=== PATIENT | male | born 1985 | race Hispanic/Latino ===

== ENCOUNTER 2023-03-28 10:26 | Outpatient (CLI) | payer OTHER | END 2023-03-28 10:27 | disposition home or self-care (01) | LOC: BICRAD 10:26 | PROVIDERS: ATTEND Nurse Practitioner Family | DX: M79.645 Pain in left finger(s) (principal) ==

== ENCOUNTER 2023-11-29 12:53 | Inpatient (IN) | payer SELFPAY ==
[2023-11-29] MEDS ORDERED: CEFAZOLIN 2 GM VIAL ONE (13:02)
[2023-11-29] MEDS ORDERED: Morphine 4 MG/ML VIAL ONE ×2 (13:02→14:21)
[2023-11-29] MEDS ORDERED: Sodium Chloride 0.9% 100 ML ONE (13:03)
[2023-11-29] MEDS ORDERED: TETANUS, DIPHTHERIA TOX,ADULT (TDVAX) 0.5 ML VIAL IM ONE (13:27)
[2023-11-29] MEDS ORDERED: Lidocaine 1% w/Epinephrine 1:100K 20 ML VIAL ONE (13:28)
[2023-11-29 13:30] LABS: #Basophils 0.03 10x3/uL (0.0-0.2); %Basophils 0.4 % (0.0-1.0); %Eosinophils 1.9 % (0.0-10.0); %Monocytes 4.9 % (0.0-10.0); %Neutrophils 70.5 % (42.0-75.0); Hematocrit 40.2 % (42.0-52.0); Hemoglobin 13.9 g/dL (14.0-18.0); Mean Corpuscular HGB CONC 34.6 g/dL (32.0-36.0); Mean Corpuscular Hemoglobin 29.4 pg (27.0-31.0); Mean Platelet Volume 11.1 fL (7.4-10.4); Platelet Count 190 10x3/uL (130-400); RBC Distribution Width 12.7 % (11.5-14.5); Red Blood Cell (RBC) Count 4.73 mill/uL (4.70-6.10)
[2023-11-29] MEDS ORDERED: Morphine 2 MG/ML VIAL SLOW IVP PRN (13:33)
[2023-11-29] MEDS ORDERED: Ipratropium/Albuterol 3 ML NEB NEB PRN (13:33)
[2023-11-29] MEDS ORDERED: GENTAMICIN IVPB PRN (13:37)
[2023-11-29] MEDS ORDERED: Ketorolac Tromethamine 30 MG (1 mL) VIAL IVP PRN (13:40)
[2023-11-29 14:09] LABS: ALT (SGPT) 36 U/L (8-55); AST (SGOT) 23 U/L (5-34); Albumin 3.7 g/dL (3.5-5.0); Alkaline Phosphatase 81 U/L (40-110); Anion Gap 13 mmol/L (10-20); BUN (Urea Nitrogen) 18 mg/dL (8.9-20.6); Bilirubin, Total 1.2 mg/dL (0.2-1.2); Calc. Creatinine Clearance 0 mL/min (70-130); Calcium 8.6 mg/dL (7.8-10.44); Carbon Dioxide 20 mmol/L (22-29); Chloride 111 mmol/L (98-107); Estimated GFR 113; Globulin 2.8 g/dL (2.4-3.5); Glucose 175 mg/dL (70-105); Potassium 3.4 mmol/L (3.5-5.1); Protein, Total 6.5 g/dL (6.0-8.3); Sodium 141 mmol/L (136-145)
[2023-11-29] MEDS: Gentamicin Sulfate 490 MG in Sodium Chloride 0.9% 100 ML IVPB SCH (15:00)
[2023-11-29] MEDS: Sodium Chloride 0.9% 1,000 ML IV SCH (15:00)
[2023-11-29 15:28] VITALS: BMI 28.3
[2023-11-29] MEDS: traMADol HCl 50 MG TAB PO PRN (15:31)
[2023-11-29] MEDS ORDERED: PROPOFOL 20 ML ONE (17:35)
[2023-11-29] MEDS ORDERED: fentaNYL PF 100 MCG/2 ML SYRINGE ONE (17:35)
[2023-11-29] MEDS ORDERED: Lidocaine 1% PF 5 ML VIAL ONE (17:35)
[2023-11-29] MEDS ORDERED: Ondansetron PF 4 MG/2 ML Vial ONE (17:35)
[2023-11-29] MEDS ORDERED: Ketorolac Tromethamine 30 MG (1 mL) VIAL ONE (17:35)
[2023-11-29] MEDS ORDERED: Bacitracin Zinc Ointment 30 gm TUBE ONE (17:42)
[2023-11-29] MEDS ORDERED: Bupivacaine PF 0.5% 30 ML VIAL ONE ×2 (17:42→20:24)
[2023-11-29] MEDS ORDERED: Thrombin 5000 UNITS/5 ML VIAL ONE (17:42)
[2023-11-29] MEDS ORDERED: Bisacodyl 10 MG SUPP PR PRN (17:43)
[2023-11-29] MEDS ORDERED: fentaNYL 50 mcg/mL 1 mL Vial SLOW IVP PRN (17:43)
[2023-11-29] MEDS ORDERED: Morphine 4 MG/ML VIAL SLOW IVP PRN (17:43)
[2023-11-29] MEDS ORDERED: Milk Of Magnesia 30 ML UDCUP PO PRN (17:43)
[2023-11-29] MEDS ORDERED: Meperidine HCl/PF 25 MG (1 mL) VIAL IM PRN (17:48)
[2023-11-29] MEDS ORDERED: traMADol HCl 50 MG TAB PO SCH (18:00)
[2023-11-29] MEDS ORDERED: CEFAZOLIN 1 GM VIAL ONE (18:11)
[2023-11-29] MEDS ORDERED: Meperidine HCl/PF 25 MG (1 mL) VIAL ONE (21:00)
[2023-11-29] MEDS: Aspirin 81 mg Enteric Coated Tablet PO SCH (22:05)
[2023-11-29] MEDS: CEFAZOLIN 2 GM in Sodium Chloride 0.9% 100 ML IVPB SCH (22:05)
[2023-11-29] MEDS: Famotidine/PF 20 mg/2ml Vial SLOW IVP SCH (22:05)
[2023-11-30 00:26] LABS: Gentamicin, Random 2.9 ug/mL (See Comment)
[2023-11-30] MEDS: Ketorolac Tromethamine 30 MG (1 mL) VIAL IVP PRN (05:01)
[2023-11-30] MEDS: Ondansetron PF 4 MG/2 ML Vial IVP PRN (05:02)
[2023-11-30 07:04] LABS: #Basophils Less than 0.03 10x3/uL (0.0-0.2); %Basophils 0.3 % (0.0-1.0); %Eosinophils 1.4 % (0.0-10.0); %Lymphocytes 24.9 % (21.0-51.0); %Monocytes 7.8 % (0.0-10.0); %Neutrophils 65.5 % (42.0-75.0); Hematocrit 34.9 % (42.0-52.0); Hemoglobin 11.7 g/dL (14.0-18.0); Mean Corpuscular HGB CONC 33.5 g/dL (32.0-36.0); Mean Corpuscular Hemoglobin 29.4 pg (27.0-31.0); Mean Corpuscular Volume 87.7 fL (78.0-98.0); Mean Platelet Volume 11.3 fL (7.4-10.4); Platelet Count 196 10x3/uL (130-400); RBC Distribution Width 13.2 % (11.5-14.5); Red Blood Cell (RBC) Count 3.98 mill/uL (4.70-6.10)
[2023-11-30 07:19] LABS: Anion Gap 11 mmol/L (10-20); BUN (Urea Nitrogen) 15 mg/dL (8.9-20.6); Calc. Creatinine Clearance 160 mL/min (70-130); Calcium 7.9 mg/dL (7.8-10.44); Carbon Dioxide 22 mmol/L (22-29); Chloride 110 mmol/L (98-107); Estimated GFR 114; Glucose 144 mg/dL (70-105); Potassium 3.6 mmol/L (3.5-5.1); Sodium 139 mmol/L (136-145)
[2023-11-30] MEDS: Acetaminophen/Codeine 30-300mg Tablet PO PRN (09:35)
[2023-11-30] MEDS: HYDROcodone/Acetaminophen 5/325 mg Tablet PO PRN (13:01)
[2023-11-30 15:54] VITALS: BP 111/73; TEMP 98.2
== END 2023-11-30 22:25 | disposition home or self-care (01) | DRG 41 ==
LOC: ERS 12:53 → SJJU 13:37
PROVIDERS: ADMIT Surgery; ATTEND Surgery
PROC: 0JBH0ZZ Excision of Left Lower Arm Subcutaneous Tissue and Fascia, Open Approach (ICD-10-PCS; 2023-11-29)
PROC: 0LQ60ZZ Repair Left Lower Arm and Wrist Tendon, Open Approach (ICD-10-PCS; principal; 2023-11-30)
PROC: 01Q50ZZ Repair Median Nerve, Open Approach (ICD-10-PCS; 2023-11-30)
DX: S54.32XA Injury of cutaneous sensory nerve at forearm level, left arm, initial encounter (principal); S56.222A Laceration of other flexor muscle, fascia and tendon at forearm level, left arm, initial encounter; W29.3XXA Contact with powered garden and outdoor hand tools and machinery, initial encounter; Z79.899 Other long term (current) drug therapy
CPT/HCPCS: 36415; 70450; 80048; 80053; 80170; 85025; 86850; 86900; 86901; 90714; C1713; J0665; J0690; J1580; J1885; J2175; J2270; J2405; J2704; J3490; J7050; S0028